=== PATIENT | female | born 1970 | race Caucasian/White ===

== ENCOUNTER 2016-10-11 09:52 | Emergency (ER) | payer OTHER ==
[2016-10-11 10:01] VITALS: TEMP 98; BMI 20.3
--- NOTE | 2016-10-11 10:55 | PDOC ---
History of Present Illness <Rubens Wilhelm - Last Filed: 10/11/16 10:52> - General History Source: Patient Exam Limitations: No Limitations - History of Present Illness Initial Comments: 10/11/16 10:55 46 year old female with no pmhx who presents to the ED with lower jaw pain s/p fall on Tuesday. Patient states that she woke up on Tuesday in the middle of night and started to feel dizzy tripped over pile of clothes and fell on her face. She reports large amount of bleeding on Tuesday that resolved on its own. She denies LOC or head trauma. <Suzette Perez - Last Filed: 10/11/16 10:56> - General Chief Complaint: Injury Stated Complaint: FALL/ FACE INJURY Time Seen by Provider: 10/11/16 10:26 Past History - Past Medical History Other medical history: none - Psycho/Social/Smoking Cessation Hx Anxiety: No Suicidal Ideation: No Smoking History: Never smoked Have you smoked in the past 12 months: Yes Number of Cigarettes Smoked Daily: 3 Information on smoking cessation initiated: Yes Hx Alcohol Use: No Drug/Substance Use Hx: Yes (social) Substance Use Type: None <Rubens Wilhelm - Last Filed: 10/11/16 10:52> <Suzette Perez - Last Filed: 10/11/16 10:56> - Past Medical History Allergies/Adverse Reactions: Allergies Allergy/AdvReac Type Severity Reaction Status Date / Time No Known Allergies Allergy Verified 10/11/16 09:54 Review of Systems - Review of Systems Able to Perform ROS?: Yes Comments:: 10/11/16 10:55 General: Absent: fever, chills Head: +lower jaw pain Absent: no head trauma <Suzette Perez - Last Filed: 10/11/16 10:56> *Physical Exam - Vital Signs Last Vital Signs Temp Pulse Resp BP Pulse Ox 98.0 F 118 H 20 158/112 100 10/11/16 09:55 10/11/16 09:55 10/11/16 09:55 10/11/16 09:55 10/11/16 09:55 - Physical Exam General Appearance: Yes: Nourished, Appropriately Dressed. No: Apparent Distress HEENT: positive: Other (BUCAL MUCOSAL LACERATION BOTH SIDES OF FRENULUM. NO ACTIVE BLEEDING . NO DENTAL INSTABILITY) Respiratory/Chest: positive: Lungs Clear. negative: Respiratory Distress Cardiovascular: positive: Regular Rhythm, Regular Rate, Tachycardia Musculoskeletal: positive: Normal Inspection. 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 <Suzette Perez - Last Filed: 10/11/16 10:56> Diagnosis at time of Disposition: Laceration of oral cavity Qualifiers: Encounter type: initial encounter Qualified Code(s): S01.512A - Laceration without foreign body of oral cavity, initial encounter - Discharge Dispostion Disposition: HOME - Referrals Referrals: Sharif Garcia MD [Primary Care Provider] - - Patient Instructions Additional Instructions: SEE YOUR DENTIST THIS WEEK IBUPROFEN 600 MG 3 TIMES A DAY FOR 3 DAYS ICE TO AREA GLY-OXYDE ORAL RINSE
[2016-10-11 11:26] VITALS: BP 150/98; PULSE 95
== END 2016-10-11 11:20 | disposition home or self-care (01) ==
LOC: JER 09:52
DX: S01.512A Laceration without foreign body of oral cavity, initial encounter (principal); W01.0XXA Fall on same level from slipping, tripping and stumbling without subsequent striking against object, initial encounter; Y93.89 Activity, other specified; Y92.038 Other place in apartment as the place of occurrence of the external cause
CPT/HCPCS: 99282-25